=== PATIENT | female | born 1970 | race Caucasian/White ===

== ENCOUNTER 2021-05-04 13:03 | Emergency (ER) | payer OTHER ==
[2021-05-04 15:16] LABS: Basophils % (Auto) 0.5 % (0.0-1.8); Eosinophils # (Auto) 0.2 K/mm3 (0.0-0.4); Eosinophils % (Auto) 3.2 % (0.0-4.3); Hematocrit 31.5 % (30.3-42.9); Hemoglobin 9.9 gm/dl (10.1-14.3); Lymphocytes # (Auto) 1.9 K/mm3 (1.2-5.4); Lymphocytes % (Auto) 25.2 % (13.4-35.0); Mean Corpuscular HGB Conc 32 % (30-34); Mean Corpuscular Volume 78 fl (79-97); Monocytes # (Auto) 0.4 K/mm3 (0.0-0.8); Monocytes % (Auto) 5.8 % (0.0-7.3); Platelet Count 245 K/mm3 (140-440); Red Blood Count 4.03 M/mm3 (3.65-5.03); Red Cell Distribution Width 19.5 % (13.2-15.2)
--- NOTE | 2021-05-04 15:33 | Emergency Department Report ---
<BRENDON ARNDT - Last Filed: 05/04/21 15:29> ED Female HPI - General Chief complaint: Vaginal Bleeding Stated complaint: I HAVE A BABY Time Seen by Provider: 05/04/21 14:25 Source: patient Mode of arrival: Ambulatory Limitations: No Limitations - History of Present Illness Initial comments: The patient was evaluated in the emergency department for symptoms described in the history of present illness. He/she was evaluated in the context of the global COVID-19 pandemic, which necessitated consideration that the patient might be at risk for infection with the virus that causes COVID-19. Institutional protocols and algorithms that pertain to the evaluation of patients at risk for COVID-19 are in a state of rapid change based on information released by regulatory bodies including the CDC and federal and state organizations. These policies and algorithms were followed during the patient's care in the emergency department. Please note that these policies, procedures and recommendations changed on a rapid basis. 50-year-old [place] female presents to the emergency room reporting she has been having heavy bleeding for the past 2 weeks. She states she has been having clots. States that she has been fatigued. She currently takes no meds does not have a primary care provider does not have a past medical history or [facility] provider. She does admit to some pelvic cramping. She denies any fever no chills no trauma to her abdomen. Denies any chest pain no shortness of breath. She denies any dizziness no nausea no vomiting. MD Complaint: vaginal bleeding Onset/Timin -: week(s) Location: suprapubic Severity scale (0 -10): 4 Quality: cramping Consistency: constant Improves with: none Worsens with: none Are you Now?: No Last Menstrual Period: 04/20/21 EDC: 01/25/22 Associated Symptoms: vaginal bleeding, abdominal pain, fever/chills (Chills no fever). denies: vaginal discharge, nausea/vomiting - Related Data Previous Rx's Medication Instructions Recorded Last Taken Type medroxyPROGESTERone ACETATE 10 mg PO DAILY 10 Days #10 tablet 05/04/21 Unknown Rx [Provera] Allergies Allergy/AdvReac Type Severity Reaction Status Date / Time No Known Allergies Allergy Verified 05/04/21 13:51 ED Review of Systems Comment: All other systems reviewed and negative ED Past Medical Hx - Medications Home Medications: Home Medications Medication Instructions Recorded Confirmed Last Taken Type medroxyPROGESTERone ACETATE 10 mg PO DAILY 10 Days #10 tablet 05/04/21 Unknown Rx [Provera] ED Physical Exam - General Limitations: No Limitations General appearance: alert, in no apparent distress - Head Head exam: Present: atraumatic, normocephalic - Eye Eye exam: Present: normal appearance, PERRL, EOMI, other (Conjunctiva is pink) - ENT ENT exam: Present: mucous membranes moist, TM's normal bilaterally, normal external ear exam, other (Gums are pink) - Neck Neck exam: Present: normal inspection, full ROM - Respiratory Respiratory exam: Present: normal lung sounds bilaterally. Absent: respiratory distress, accessory muscle use - Cardiovascular Cardiovascular Exam: Present: regular rate - GI/Abdominal GI/Abdominal exam: Present: soft. Absent: distended, tenderness, guarding - Extremities Exam Extremities exam: Present: normal inspection, full ROM - Back Exam Back exam: Present: normal inspection - Neurological Exam Neurological exam: Present: alert, oriented X3, normal gait - Psychiatric Psychiatric exam: Present: normal affect, normal mood - Skin Skin exam: Present: warm, dry, intact, normal color. Absent: rash ED Medical Decision Making - Lab Data Result diagrams: 05/04/21 14:42 - Medical Decision Making 50-year-old [place] female presents to the emergency room reporting she has been having heavy bleeding for the past 2 weeks. She states she has been having clots. States that she has been fatigued. She currently takes no meds does not have a primary care provider does not have a past medical history or [facility] provider. She does admit to some pelvic cramping. She denies any fever no chills no trauma to her abdomen. Denies any chest pain no shortness of breath. She denies any dizziness no nausea no vomiting. Patient has slight anemia which does NOT require blood transfusion. We will place patient on Provera for 10 days. Referral to [facility]URIST. Patient can take Tylenol ibuprofen for pain. Patient has no risk factors for being placed on Provera. As she does not smoke is not on steroids. ED Disposition Clinical Impression: Menorrhagia Disposition: HOME / SELF CARE / HOMELESS Is pt being admited?: No Does the pt Need Aspirin: No Condition: Stable Instructions: Metrorrhagia, [id number], Abnormal Uterine Bleeding, [id number] Additional Instructions: Vital signs are stable blood work is stable. I recommend completing the Provera and following up with the OLERICULTURIST. Tylenol or ibuprofen as needed for pelvic discomfort. Prescriptions: medroxyPROGESTERone ACETATE [Provera] 10 mg PO DAILY 10 Days #10 tablet Referrals: PRIMARY CAREMD [Primary Care Provider] - 3-5 Days [facility] [Provider Group] - 3-5 Days [facility] [Provider Group] - 3-5 Days [facility] [Provider Group] - 3-5 Days Forms: Work/School Release Form(ED) Time of Disposition: 15:57 <CYNTHIA FREED - Last Filed: 05/04/21 19:15> ED Review of Systems ROS: Stated complaint: I HAVE A BABY Other details as noted in HPI ED Course Vital Signs 05/04/21 15:46 Temperature 97.8 F Pulse Rate 76 Respiratory 18 Rate Blood Pressure 124/83 [Left] O2 Sat by Pulse 100 Oximetry ED Medical Decision Making - Lab Data Result diagrams: 05/04/21 14:42 Vital Signs 05/04/21 15:46 Temperature 97.8 F Pulse Rate 76 Respiratory 18 Rate Blood Pressure 124/83 [Left] O2 Sat by Pulse 100 Oximetry Lab Results 05/04/21 05/04/21 05/04/21 Range/Units 14:42 14:42 Unknown WBC 7.4 (4.5-11.0) K/mm3 RBC 4.03 (3.65-5.03) M/mm3 Hgb 9.9 L (10.1-14.3) gm/dl Hct 31.5 (30.3-42.9) % MCV 78 L (79-97) fl MCH 25 L (28-32) pg MCHC 32 (30-34) % RDW 19.5 H (13.2-15.2) % Plt Count 245 (140-440) K/mm3 Lymph % (Auto) 25.2 (13.4-35.0) % [place] % (Auto) 5.8 (0.0-7.3) % Eos % (Auto) 3.2 (0.0-4.3) % Baso % (Auto) 0.5 (0.0-1.8) % Lymph # (Auto) 1.9 (1.2-5.4) K/mm3 [place] # (Auto) 0.4 (0.0-0.8) K/mm3 Eos # (Auto) 0.2 (0.0-0.4) K/mm3 Baso # (Auto) 0.0 (0.0-0.1) K/mm3 Seg Neutrophils % 65.3 (40.0-70.0) % Seg Neutrophils # 4.8 (1.8-7.7) K/mm3 HCG, Quant < 2 (0-4) mIU/mL Urine Color Red (Yellow) Urine Turbidity Turbid (Clear) Urine pH TNR Ur Specific [place] 1.006 (1.003-1.030) Urine Protein TNR Urine Glucose (UA) TNR Urine Ketones TNR Urine Blood TNR Urine Nitrite TNR Ur Reducing Substances TNR Urine Bilirubin TNR Urine Ictotest TNR Urine Urobilinogen TNR Ur Leukocyte Esterase TNR Urine WBC (Auto) TNR Urine RBC (Auto) > 182.0 (0.0-6.0) /HPF Critical care attestation.: If time is entered above; I have spent that time in minutes in the direct care of this critically ill patient, excluding procedure time. ED Disposition Is pt being admited?: No Does the pt Need Aspirin: No
[2021-05-04 15:43] LABS: Color,Urine Red (Yellow); RBC,Urine > 182.0 /HPF (0.0-6.0)
[2021-05-04 15:45] LABS: Bilirubin,Urine TNR (Negative); Blood,Urine TNR (Negative); PH,Urine TNR (5.0-7.0); Protein,Urine TNR mg/dL (Negative); Urobilinogen,Urine TNR mg/dL (<2.0)
[2021-05-04 15:47] VITALS: BP 124/83
[2021-05-04 16:01] LABS: Ictotest,Urine TNR (Negative); WBC,Urine TNR /HPF (0.0-6.0)
== END 2021-05-04 16:40 | disposition home or self-care (01) ==
LOC: ED 13:03
DX: N92.0 Excessive and frequent menstruation with regular cycle (principal); Z79.899 Other long term (current) drug therapy
CPT/HCPCS: 36415; 81001; 84702; 85025; 99283